=== PATIENT | female | born 1955 | race Caucasian/White ===

== ENCOUNTER → 2019-12-04 | Outpatient (CLI) | payer OTHER ==
[~2019-12-04] MED LIST: Cranberry300 MG PO; Fish Oil300 MG PO; Ibuprofen Ib200 MG PO; MAGNESIUM400 M1 PO; ZESTORETIC 20-121 EA PO
== END | disposition home or self-care (01) ==
LOC: LAB EV 13:29 → LAB SHORT 13:29
DX: J02.9 Acute pharyngitis, unspecified (principal)
CPT/HCPCS: 87081

== ENCOUNTER → 2020-02-02 | Outpatient (CLI) | payer OTHER | END | disposition home or self-care (01) | DX: D23.111 Other benign neoplasm of skin of right upper eyelid, including canthus (principal); L91.8 Other hypertrophic disorders of the skin ==

== ENCOUNTER → 2020-12-16 | Outpatient (CLI) | payer OTHER ==
[~2020-12-16] MED LIST changes: +ALLEGRA ALLERG180 MG PO; +ATOR20 PO; +HYDCHL25 PO; +IBUP200 PO; -Ibuprofen Ib200 MG PO; +LOSA50 PO; +Metformin HCl500 M1 PO
[2020-12-21 17:12] LABS: HPV 16 Negative (Negative); HPV 18 Negative (Negative); HPV OTHER HR TYPES Negative (Negative)
== END | disposition home or self-care (01) ==
LOC: LAB SHORT 13:41 → LAB 13:41
PROVIDERS: Internal Medicine
DX: Z01.419 Encounter for gynecological examination (general) (routine) without abnormal findings (principal)
CPT/HCPCS: 87624; 88175

== ENCOUNTER 2020-12-28 10:19 | Day surgery (SDC) | payer OTHER ==
[~2020-12-28] VITALS: Ht 165.1 cm; Wt 140.9 kg
[~2020-12-28 10:19] MED LIST changes: -ATOR20 PO
[2020-12-28] MEDS ORDERED: ATOR20 PO (11:00)
--- NOTE | 2020-12-28 13:52 | NUR ---
12/28/20 1352 Erik Willis History, Chart, Medications and Allergies reviewed before start of procedure.MONITOR INTACT WITH CONTINUOUS PULSE OXIMETRY AND INTERMITTENT BP.3-LEAD EKG REVIEWED WITH PHYSICIAN PRIOR TO START OF PROCEDURE.O2 VIA N/C INTACT THROUGHOUT SEDATION/PROCEDURE. See Anesthesia record
--- NOTE | 2020-12-28 14:56 | NUR ---
Patient up to Ambulate independently. Gait steady. Discharge instructions reviewed with patient. Patient verbalizes understanding. Copy given to patient to take home. Patient States Post-Procedure ride home has been arranged. Discharged via wheelchair to private car for ride home. ALL BELONGINGS RETURNED TO PATIENT.
== END 2020-12-28 15:01 | disposition home or self-care (01) ==
LOC: ORSCMMR 10:19 → ORD 11:30 → ORSCMMR 15:01
PROVIDERS: Surgery
PROC: 0DBK8ZX Excision of Ascending Colon, Via Natural or Artificial Opening Endoscopic, Diagnostic (ICD-10-PCS; principal; 2020-12-28 13:00)
DX: Z12.11 Encounter for screening for malignant neoplasm of colon (principal); Z86.010 Personal history of colon polyps; D12.2 Benign neoplasm of ascending colon; E11.9 Type 2 diabetes mellitus without complications; E78.5 Hyperlipidemia, unspecified; I10 Essential (primary) hypertension; Z68.43 Body mass index [BMI] 50.0-59.9, adult; E66.01 Morbid (severe) obesity due to excess calories; Z79.84 Long term (current) use of oral hypoglycemic drugs; Z79.899 Other long term (current) drug therapy
CPT/HCPCS: 82947; 88305; J2704; J7120

== ENCOUNTER 2023-02-19 11:20 | Day surgery (SDC) | payer MEDICARE ==
[2023-02-19] VITALS (18 sets, daily range): BP systolic 103–157; BP diastolic 57–92
[~2023-02-19] VITALS: Ht 165.1 cm; Wt 128.0 kg
[~2023-02-19 11:20] MED LIST changes: +ATOR20 PO
--- NOTE | 2023-02-19 12:20 | NUR ---
Ambulatory in Day Surgery History, Chart, Medications and Allergies reviewed before start of procedure.Lungs clear T/O to Auscultation. Patient confirms NPO status and agrees with scheduled surgery. PT DID NOT TAKE CHLOREHEXIDINE SHOWERS. DID NOT WIPE RIGHT ARM DUE TO BRACE. HAS EARRINGS IN CLEAR BAG IN HIS POCKET.
--- NOTE | 2023-02-19 15:34 | NUR ---
PT C/O 10/10 PAIN, C/O TIGHT COMPRESSING PAIN, BURNING. DR. CHAUDHARI NOTIFIED, STS OKAY TO CONSULT ANESTHESIA REGARDING POSSIBLE NERVE BLOCK POST-OP. ANESTHESIA NOTIFIED OF REQUESTED CONSULT. SPOUSE AT BEDSIDE, PT CALM & COOPERATIVE, TEARFUL WITH MOVEMENT, GRIMACING. ARM ELEVATED, EXTRA PILLOWS PLACED BELOW, ICE PLACED ON AC.
--- NOTE | 2023-02-19 16:16 | NUR ---
2937 dr garrido placed a block in the rt subclavian. pt pepper well.vss
--- NOTE | 2023-02-19 17:09 | NUR ---
1635 NAUSEATED, ZOFRAN GIVEN PER DR GODINEZ 1655 AMBULATE TO BR, FAIRLY STEADY ON FEET. STAND BY ASSIST NOT NEEDED 1705 DC HOME, TO CAR VIA . CARE TURNED OVER TO
--- NOTE | 2023-02-20 09:30 | NUR ---
02/20/23 0930 Laura Cunningham VERIFICATIONS: EDIT CHART.
== END 2023-02-19 22:48 | disposition home or self-care (01) ==
LOC: ORSCMMR 11:20 → ORD 11:20 → ORSCMMR 11:29 → ORD 22:48
PROVIDERS: Orthopaedic Surgery
PROC: 0PSH04Z Reposition Right Radius with Internal Fixation Device, Open Approach (ICD-10-PCS; principal; 2023-02-19 12:30)
DX: S52.571A Other intraarticular fracture of lower end of right radius, initial encounter for closed fracture (principal); S52.601A Unspecified fracture of lower end of right ulna, initial encounter for closed fracture; W18.30XA Fall on same level, unspecified, initial encounter; E11.9 Type 2 diabetes mellitus without complications; I10 Essential (primary) hypertension; E78.5 Hyperlipidemia, unspecified; E66.01 Morbid (severe) obesity due to excess calories; Z68.42 Body mass index [BMI] 45.0-49.9, adult; Z79.84 Long term (current) use of oral hypoglycemic drugs; Z79.899 Other long term (current) drug therapy
CPT/HCPCS: 82947; A9270; C1713; J0690; J1100; J1170; J2270; J2310; J2370; J2405; J2704; J3010; J7120

== ENCOUNTER → 2023-10-26 | Outpatient (CLI) | payer MEDICARE ==
[2023-10-27 12:03] LABS: Adenovirus F 40/41 Not Detected (NOT DETECT); Astrovirus Not Detected (NOT DETECT); Campylobacter Sp Not Detected (NOT DETECT); Cryptosporidium Not Detected (NOT DETECT); Cyclospora Cayetanensis Not Detected (NOT DETECT); E. Coli O157 Not Detected (NOT DETECT); Entamoeba Histolytica Not Detected (NOT DETECT); Enteroaggregative E. coli-EAEC Not Detected (NOT DETECT); Enteropathogenic E. coli-EPEC Not Detected (NOT DETECT); Enterotoxigenic E. coli-ETEC Not Detected (NOT DETECT); Giardia Lamblia Not Detected (NOT DETECT); Norovirus GI/GII Not Detected (NOT DETECT); Plesiomonas Shigelloides Not Detected (NOT DETECT); Rotavirus A Not Detected (NOT DETECT); Salmonella Sp Not Detected (NOT DETECT); Sapovirus Not Detected (NOT DETECT); Shiga Toxin-prod E. coli-STEC Not Detected (NOT DETECT); Shigella/Enteroin E. coli-EIEC Not Detected (NOT DETECT); Vibrio Cholerae Not Detected (NOT DETECT); Vibrio Sp Not Detected (NOT DETECT); Yersinia Enterocolitica Not Detected (NOT DETECT)
== END ==
LOC: LAB 16:40 → LAB SHORT 16:40
PROVIDERS: Physician Assistant
DX: R19.7 Diarrhea, unspecified (principal)
CPT/HCPCS: 87507